=== PATIENT | male | born 1990 | race African-American/Black ===

== ENCOUNTER 2016-06-05 20:07 | Emergency (ER) | payer SELFPAY ==
--- NOTE | 2016-06-05 20:32 | ED Physician Documentation ---
History of Present Illness - Stated complaint Stated Complaint: RT LEG PX - Chief complaint Chief Complaint: Ext Problem - History obtained from History obtained from: Patient - History of Present Illness Timing: How many days ago (4) Pain level max: 6 Pain level now: 5 Quality: aching, sharp pain Improved by: rest Worsened by: movement, walking - Additonal information Additional information: Patient is a 26-year-old male who presents to the emergency department with right hip pain. This radiates down the right leg to the right knee along the lateral aspect of the thigh. Worse with movement, worse with standing. Worse with ambulation. No fevers. No history of trauma. Patient is visiting from [place]. Review of Systems Constitutional: denies: Fever, Chills Nose: denies: Rhinorrhea / runny nose, Congestion Respiratory: denies: Cough GI: denies: Abdominal Pain, Nausea, Vomiting, Diarrhea Skin: denies: Rash Musculoskeletal: denies: Neck pain, Back pain Neurologic: denies: Headache PD PAST MEDICAL HISTORY - Past Medical History Past Medical History: No - Past Surgical History Past Surgical History: No - Present Medications Home Medications: Ambulatory Orders Medication Instructions Recorded Confirmed Meloxicam [Mobic] 7.5 mg PO BID PRN #20 tablet 06/05/16 Prednisone 40 mg PO DAILY #10 tablet 06/05/16 - Allergies Allergies/Adverse Reactions: Allergies Allergy/AdvReac Type Severity Reaction Status Date / Time No Known Drug Allergies Allergy Verified 06/05/16 20:20 - Social History Does the pt smoke?: Yes Smoking Status: Current every day smoker Does the pt drink ETOH?: No Does the pt have substance abuse?: No - POLST Patient has POLST: No PD ED PE NORMAL - Vitals Vital signs reviewed: Yes - General General: Alert and oriented X 3, No acute distress - Back Back: No spinal TTP - Derm Derm: Warm and dry - Extremities Extremities: No deformity, Other (Pain with internal rotation of the right hip. There is no pain with external rotation. There is pain with full extension. There is no erythema, swelling or skin changes. Otherwise normal examination of the right lower extremity. + impingement sign of the R hip) - Neuro Neuro: Alert and oriented X 3 - Psych Psych: Normal mood, Normal affect Results - Vitals Vitals: Vital Signs - 24 hr 04/28/17 04/28/17 20:15 21:16 Temperature 37.2 C 36.8 C Heart Rate 116 H 111 H Respiratory 16 18 Rate Blood Pressure 133/96 H 139/95 H O2 Saturation 98 98 Oxygen O2 Source Room air - Rads (name of study) R hip xray Radiology: Prelim report reviewed, EMP read contemporaneously, See rad report ( Variant anatomy of the proximal femurs bilaterally, right than left, which can be associated with cam-type femoral acetabular impingement. . No acute bony abnormality. ) PD MEDICAL DECISION MAKING - ED course Complexity details: reviewed results, re-evaluated patient, considered differential, d/w patient ED course: Patient is a 26-year-old male who presents to the emergency department the right hip pain. Physical exam is consistent with femoral acetabular impingement. X-ray is also consistent with this. Placed on crutches for comfort and started on nonsteroidal anti-inflammatory medications as well as a dose of steroids. No evidence of septic joint or fracture. He is visiting from [place] and will follow-up with an orthopedist when he returns home. Copies of x-rays were given to the patient. Patient counseled regarding signs and symptoms for which I believe and urgent re-evaluation would be necessary. Patient with good understanding of and agreement to plan and is comfortable going home at this time This document was made in part using voice recognition software. While efforts are made to proofread this document, sound alike and grammatical errors may occur. 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 You need to follow-up with an orthopedist when he returned home to [place]. Sometimes this can be improved with physical therapy, other times it will require surgery. Take a copy of your x-rays with you. Your blood pressure was elevated today on check in to the emergency department. This does not mean that you have hypertension, it is a common phenomenon to check into the emergency department and have elevated blood pressure. I recommend that you see your primary care physician within the week to have it rechecked when you're feeling better. Discharge Date/Time: 06/05/16 21:45
--- NOTE | 2016-06-05 21:15 | XRAY Preliminary Report ---
Exam: XR Hip w/Pelvis 2-3V RT IMPRESSION: 1. Variant anatomy of the proximal femurs bilaterally, right than left, which can be associated with cam-type femoral acetabular impingement. 2. No acute bony abnormality. [facility] SITE ID: [id number]
[2016-06-05 21:17] VITALS: BP 139/95
--- NOTE | 2016-06-05 21:18 | XRAY Report ---
EXAM: RIGHT HIP AND PELVIS RADIOGRAPHY EXAM DATE: 06/05/2016 08:48 PM. HISTORY: Right hip pain. No known injury. COMPARISONS: None. TECHNIQUE: 1 view of the pelvis and 1 view of the hip. FINDINGS: Bones: Variant anatomy of the proximal femurs bilaterally, with diminished cutback at the lateral fem oral head/neck junctions and small osseous protuberance along the lateral right femoral neck. No frac ture or bone lesion. Joints: Normal alignment at the hips, sacroiliac joints, and pubic symphysis.The hip joint space is m aintained. Soft Tissues: Normal. No soft tissue swelling. IMPRESSION: 1. Variant anatomy of the proximal femurs bilaterally, right than left, which can be associated with cam-type femoral acetabular impingement. 2. No acute bony abnormality. [facility] Referring Provider Line: [phone] SITE ID: [id number]
== END 2016-06-05 21:45 | disposition home or self-care (01) ==
LOC: ED 20:07
DX: M25.851 Other specified joint disorders, right hip (principal); R03.0 Elevated blood-pressure reading, without diagnosis of hypertension; F17.200 Nicotine dependence, unspecified, uncomplicated
CPT/HCPCS: 99283; 99284